=== PATIENT | female | born 1980 | race Caucasian/White ===

== ENCOUNTER 2020-01-26 00:35 | Outpatient (CLI) | payer MEDICAID, SELFPAY ==
[2020-01-26 16:46] LABS: SARS-CoV-2 RNA PCR Negative
== END 2020-01-26 00:36 | disposition home or self-care (01) ==
LOC: ANHCOVIDDT 00:35
PROVIDERS: PCP Family Medicine; Visit Provider Internal Medicine Gastroenterology
DX: Z01.818 Encounter for other preprocedural examination (principal); Z11.59 Encounter for screening for other viral diseases
CPT/HCPCS: 87635; C9803; U0003

== ENCOUNTER 2020-01-29 00:51 | Day surgery (SDC) | payer MEDICAID, SELFPAY ==
[2020-01-21 13:13] VITALS: BMI 33.6
[2020-01-29 09:08] VITALS: BMI 32.9
[2020-01-29 09:09] VITALS: BP 119/58; PULSE 78; RESP 17; TEMP 36.9; O2SAT 98
[2020-01-29] MEDS: LACTATED RINGERS 1,000 ML 150 ML IV CONT (09:19)
--- NOTE | 2020-01-29 09:54 | WPDANESEPPF ---
Anes - Initial Pre Proc Eval Procedure: Operation Date: 01/29/20 10:15 Proposed Procedures p Esophagogastroduodenoscopy - Mal Martinez MD Date/Time: 01/29/20 09:54 Surgeon: Mal Martinez MD Pre Op Diagnosis: Abdominal Pain/ Nausea Patient Data Age: 39 Gender: F Height: 5 ft 7 in Weight: 95.3 kg Last Vital Signs Temp 36.9 C 01/29/20 09:09 Pulse 78 01/29/20 09:09 Resp 17 01/29/20 09:09 BP 119/58 L 01/29/20 09:09 Pulse Ox 98 01/29/20 09:09 Allergies Allergy/AdvReac Type Severity Reaction Status Date / Time hydroxyprogesterone Allergy Severe sob, Verified 01/21/20 13:10 [From Delalutin] hives, itching quetiapine [From Seroquel] Allergy Severe Difficulty Verified 01/21/20 13:10 Swallowing, swelling, hives and itching morphine Allergy Intermediate sob, chest Verified 01/21/20 13:10 pain and hives amoxicillin [From Augmentin] Allergy Mild hives, Verified 01/21/20 13:10 itching cefuroxime Allergy Mild hives and Verified 01/21/20 13:10 itching clavulanic acid Allergy Mild hives, Verified 01/21/20 13:10 [From Augmentin] itching esomeprazole Allergy Mild hives and Verified 01/21/20 13:10 itching lansoprazole Allergy Mild hives and Verified 01/21/20 13:10 itching piperacillin Allergy Mild hives and Verified 01/21/20 13:10 itching sulfamethoxazole Allergy Mild hives and Verified 01/21/20 13:10 [From Bactrim] itching trimethoprim [From Bactrim] Allergy Mild hives and Verified 01/21/20 13:10 itching aspirin Allergy hives, Verified 01/21/20 13:10 itching and swelling Home Medications Medication Instructions Recorded Confirmed Type amitriptyline 25 mg tablet 25 mg PO DAILY #30 tablet 01/02/20 01/29/20 Rx cholestyramine-aspartame 4 gram 4 gm PO BID 01/02/20 01/29/20 History oral powder clonazepam 0.5 mg tablet 0.5 mg PO DAILY 01/02/20 01/29/20 History dicyclomine 10 mg capsule 10 mg PO TID PRN #90 cap 01/02/20 01/29/20 Rx metoprolol tartrate 25 mg tablet 25 mg PO DAILY 01/02/20 01/29/20 History nitroglycerin 0.4 mg sublingual 0.4 mg SUBLINGUAL Q5M PRN 01/02/20 01/29/20 History tablet omeprazole 40 mg capsule,delayed 40 mg PO DAILY 01/02/20 01/29/20 History release fexofenadine [Sue Allergy] 180 mg PO DAILY 01/21/20 01/29/20 History fluticasone propionate [Flonase 1 spray INTRANASAL DAILY 01/21/20 01/29/20 History Allergy Relief] acetaminophen [Tylenol] 325 mg PO ONCE PRN 01/29/20 01/29/20 History ondansetron 4 mg PO PRN PRN 01/29/20 01/29/20 History Patient hx anesthesia problems: none Family hx anesthesia problems: none [facility] Past Medical History Medical History (Updated 01/29/20 @ 09:58 by Macario Armas MD) 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 Cyclical vomiting with nausea Gastritis Irritable bowel syndrome with constipation and diarrhea Lower abdominal pain Upper abdominal pain Anes - Eval Final PreProcedure Day of Procedure 01/29/20 09:54 Patient weight: obese Heart: regular rate and rhythm Lungs: clear to auscultation Airway: Mallampati scale class II Neurological: alert and oriented Last oral intake: >/= 8 hours ASA classification: III Emergent: no Anesthetic plan: proceed Anesthesia type and monitoring: general GIVS and standard monitoring Informed Consent: The patient's anesthetic plan and its attendant risks and benefits were discussed with the patient/family/POA. Questions were solicited and answers provided to the satisfaction of the patient/family/POA.
--- NOTE | 2020-01-29 10:32 | WPDHPUPDATE1 ---
History and Physical Update Update Date/Time: 01/29/20 10:32 History and Physical has been reviewed, including an updated exam of the patient. There are NO changes in the patient's condition. Risks, benefits, and alternatives have been discussed and questions answered. Patient agrees to proceed with procedure.
[2020-01-29 10:56] VITALS: BP 107/64; PULSE 83; RESP 27; O2SAT 95
[2020-01-29 11:06] VITALS: BP 110/67; PULSE 80; RESP 15; O2SAT 95
[2020-01-29 11:16] VITALS: BP 118/76; PULSE 83; RESP 15; O2SAT 95
== END 2020-01-29 11:40 | disposition home or self-care (01) ==
PROVIDERS: PCP Family Medicine; Visit Provider Internal Medicine Gastroenterology
PROC: 0DJ08ZZ Inspection of Upper Intestinal Tract, Via Natural or Artificial Opening Endoscopic (ICD-10-PCS; CPT 43235; principal; 2020-01-29 10:15)
DX: K29.50 Unspecified chronic gastritis without bleeding (principal); K29.80 Duodenitis without bleeding; G60.0 Hereditary motor and sensory neuropathy; K58.2 Mixed irritable bowel syndrome; E66.9 Obesity, unspecified; Z68.32 Body mass index [BMI] 32.0-32.9, adult
CPT/HCPCS: 43239; 88305; J2001; J2704; J7120

== ENCOUNTER 2021-06-10 02:31 | Day surgery (SDC) | payer OTHER, SELFPAY ==
[2021-05-27 13:56] VITALS: BMI 33.3
--- NOTE | 2021-06-09 09:57 | WPDANESEPPF ---
Anes - Initial Pre Proc Eval Procedure: Operation Date: 06/10/21 08:00 Proposed Procedures p Esophagogastroduodenoscopy & Colonoscopy - Mal Martinez MD Date/Time: 06/09/21 09:57 Surgeon: Mal Martinez MD Pre Op Diagnosis: gerd, diarrhea Patient Data Age: 41 Gender: F Height: 1.7 m Weight: 96.36 kg Allergies Allergy/AdvReac Type Severity Reaction Status Date / Time hydroxyprogesterone Allergy Severe sob, Verified 06/10/21 06:53 [From Delalutin] hives, itching quetiapine [From Seroquel] Allergy Severe Difficulty Verified 06/10/21 06:53 Swallowing, swelling, hives and itching morphine Allergy Intermediate sob, chest Verified 06/10/21 06:53 pain and hives amoxicillin [From Augmentin] Allergy Mild hives, Verified 06/10/21 06:53 itching cefuroxime Allergy Mild hives and Verified 06/10/21 06:53 itching clavulanic acid Allergy Mild hives, Verified 06/10/21 06:53 [From Augmentin] itching esomeprazole Allergy Mild hives and Verified 06/10/21 06:53 itching lansoprazole Allergy Mild hives and Verified 06/10/21 06:53 itching nicotine Allergy Mild Rash Verified 06/10/21 06:53 piperacillin Allergy Mild hives and Verified 06/10/21 06:53 itching sulfamethoxazole Allergy Mild hives and Verified 06/10/21 06:53 [From Bactrim] itching trimethoprim [From Bactrim] Allergy Mild hives and Verified 06/10/21 06:53 itching aspirin Allergy hives, Verified 06/10/21 06:53 itching and swelling Home Medications Medication Instructions Recorded Confirmed Type cholestyramine-aspartame 4 gram 4 gm PO BID 01/02/20 05/27/21 History oral powder clonazepam 0.5 mg tablet 0.5 mg PO DAILY PRN 01/02/20 05/27/21 History metoprolol tartrate 25 mg tablet 25 mg PO DAILY PRN 01/02/20 05/27/21 History nitroglycerin 0.4 mg sublingual 0.4 mg SUBLINGUAL Q5M PRN 01/02/20 05/27/21 History tablet omeprazole 40 mg capsule,delayed 40 mg PO DAILY 01/02/20 05/27/21 History release fexofenadine [Sue Allergy] 180 mg PO DAILY 01/21/20 05/27/21 History fluticasone propionate [Flonase 1 spray INTRANASAL DAILY 01/21/20 05/27/21 History Allergy Relief] acetaminophen [Tylenol] 325 mg PO ONCE PRN 01/29/20 05/27/21 History ondansetron 4 mg PO PRN PRN 01/29/20 05/27/21 History dicyclomine 10 mg capsule 10 mg PO TID PRN #90 cap 02/05/20 05/27/21 Rx amitriptyline 25 mg tablet See Rx Instructions .ROUTE 09/16/20 05/27/21 Rx .COMPLEX #90 tablet famotidine 40 mg tablet 40 mg PO QHS #30 tablet 01/22/21 05/27/21 Rx Patient hx anesthesia problems: none Family hx anesthesia problems: none Results Review: All pre-operative results and documents have been reviewed as part of the pre-operative evaluation. [facility] Past Medical History Medical History (Updated 06/09/21 @ 09:58 by Ganga Potts, ) Adenomatous colon polyp Bloating Charcot Zunilda Tooth muscular atrophy Cyclical vomiting with nausea Fibroid Gastritis Hemorrhoid Irregular heart beat Irritable bowel syndrome with constipation and diarrhea Lower abdominal pain Nausea Rectal bleeding Upper abdominal pain Social History Social History (Updated 01/22/21 @ 09:02 by Tracey Broussard CMA) Smoking status: Former smoker Tobacco type: cigarettes Alcohol intake: former Substance use: never Substance use type: does not use Living arrangements: with family Spiritual care concerns: No Anes - Eval Final PreProcedure Day of Procedure 06/09/21 09:57 Patient weight: obese Heart: regular rate and rhythm Lungs: clear to auscultation and normal air movement Airway: Mallampati scale class III Neurological: alert and oriented Last oral intake: >/= 8 hours ASA classification: III Emergent: no Anesthetic plan: proceed Anesthesia type and monitoring: general GIVS and standard monitoring Results Review: All pre-operative results and documents have been
[2021-06-10 06:56] VITALS: BP 120/66; PULSE 86; RESP 18; TEMP 36.4; O2SAT 96
[2021-06-10] MEDS: LACTATED RINGERS 1,000 ML 150 ML IV CONT (07:18)
--- NOTE | 2021-06-10 08:04 | PM.HPGS ---
History of Present Illness History of Present Illness Consent: Risks, benefits, and alternatives have been discussed and questions answered. Patient agrees to proceed with procedure. Chief complaint: gerd, diarrhea Narrative: Sarah Wang is a 41 year old female with history of ibs on bentyl, gerd on omeprazole, nausea on zofran with most recent right abdominal pain. She went to another ER, she was told that had thickening right colon by CT Scan. She had colonoscopy 2018 with polyp removed. Also intermittent loose stool. Review of Systems Constitutional: Constitutional: Denies headache(s) and Denies weakness Eyes: Eyes: Denies blurry vision ENT: Reports Normal hearing present, Denies headache(s) and Denies neck pain Cardiovascular: Cardiovascular: Denies chest pain and Denies dyspnea Respiratory: Respiratory: Denies dyspnea Gastrointestinal: Gastrointestinal: Reports no additional gastrointestinal complaints Genitourinary: Genitourinary: Denies dysuria Musculoskeletal: Musculoskeletal: Denies neck pain Integumentary/Breasts: Skin/Breast: Denies dry skin Neurologic: Reports Normal hearing present, Denies headache(s) and Denies weakness Psychiatric: Psychiatric: Denies anxiety Endocrine: Endocrine: Denies change in body appearance Hematologic/Lymphatic: Hematologic/Lymphatic: Denies easy bleeding Allergic/Immunologic: Allergic/Immunologic: Denies urticaria PMFSH Past Medical History Medical History (Updated 06/09/21 @ 09:58 by Ganga Potts DO) Adenomatous colon polyp Bloating Charcot Zunilda Tooth muscular atrophy Cyclical vomiting with nausea Fibroid Gastritis Hemorrhoid Irregular heart beat Irritable bowel syndrome with constipation and diarrhea Lower abdominal pain Nausea Rectal bleeding Upper abdominal pain Social History Social History (Updated 01/22/21 @ 09:02 by Tracey Broussard CMA) Smoking status: Former smoker Tobacco type: cigarettes Alcohol intake: former Substance use: never Substance use type: does not use Living arrangements: with family Spiritual care concerns: No Meds Home Medications and Allergies Home Medications Medication Instructions Recorded Confirmed Type cholestyramine-aspartame 4 gram 4 gm PO BID 01/02/20 05/27/21 History oral powder clonazepam 0.5 mg tablet 0.5 mg PO DAILY PRN 01/02/20 05/27/21 History metoprolol tartrate 25 mg tablet 25 mg PO DAILY PRN 01/02/20 05/27/21 History nitroglycerin 0.4 mg sublingual 0.4 mg SUBLINGUAL Q5M PRN 01/02/20 05/27/21 History tablet omeprazole 40 mg capsule,delayed 40 mg PO DAILY 01/02/20 05/27/21 History release fexofenadine [Sue Allergy] 180 mg PO DAILY 01/21/20 05/27/21 History fluticasone propionate [Flonase 1 spray INTRANASAL DAILY 01/21/20 05/27/21 History Allergy Relief] acetaminophen [Tylenol] 325 mg PO ONCE PRN 01/29/20 05/27/21 History ondansetron 4 mg PO PRN PRN 01/29/20 05/27/21 History dicyclomine 10 mg capsule 10 mg PO TID PRN #90 cap 02/05/20 05/27/21 Rx amitriptyline 25 mg tablet See Rx Instructions .ROUTE 09/16/20 05/27/21 Rx .COMPLEX #90 tablet famotidine 40 mg tablet 40 mg PO QHS #30 tablet 01/22/21 05/27/21 Rx Allergies Allergy/AdvReac Type Severity Reaction Status Date / Time hydroxyprogesterone Allergy Severe sob, Verified 06/10/21 06:53 [From Delalutin] hives, itching quetiapine [From Seroquel] Allergy Severe Difficulty Verified 06/10/21 06:53 Swallowing, swelling, hives and itching morphine Allergy Intermediate sob, chest Verified 06/10/21 06:53 pain and hives amoxicillin [From Augmentin] Allergy Mild hives, Verified 06/10/21 06:53 itching cefuroxime Allergy Mild hives and Verified 06/10/21 06:53 itching clavulanic acid Allergy Mild hives, Verified 06/10/21 06:53 [From Augmentin] itching esomeprazole Allergy Mild hives and Verified 06/10/21 06:53 itching lansoprazole Allergy Mild hive
[2021-06-10 08:38] VITALS: BP 89/47; PULSE 76; RESP 17; O2SAT 100
[2021-06-10 08:48] VITALS: BP 109/82; PULSE 74; RESP 14; O2SAT 98
[2021-06-10 08:58] VITALS: BP 114/86; PULSE 73; RESP 20; O2SAT 98
== END 2021-06-10 09:12 | disposition home or self-care (01) ==
PROVIDERS: Visit Provider Internal Medicine Gastroenterology
PROC: 0DJ08ZZ Inspection of Upper Intestinal Tract, Via Natural or Artificial Opening Endoscopic (ICD-10-PCS; CPT 43235; principal; 2021-06-10 08:00)
DX: R10.30 Lower abdominal pain, unspecified (principal); K64.8 Other hemorrhoids; K58.2 Mixed irritable bowel syndrome; K29.70 Gastritis, unspecified, without bleeding; K21.9 Gastro-esophageal reflux disease without esophagitis; R11.0 Nausea; R11.15 Cyclical vomiting syndrome unrelated to migraine; G60.0 Hereditary motor and sensory neuropathy; Z87.891 Personal history of nicotine dependence; E66.9 Obesity, unspecified; Z68.33 Body mass index [BMI] 33.0-33.9, adult
CPT/HCPCS: 45380; 43239; 88305; 88307; J2001; J2370; J2704; J7120

== ENCOUNTER 2023-10-07 00:39 | Day surgery (SDC) | payer BC, MEDICAID, SELFPAY ==
[2023-06-07 15:52] VITALS: BMI 36.1
[2023-08-16 11:03] VITALS: BMI 36.1
--- NOTE | 2023-08-16 11:20 | PC.NURSE ---
Pt. called regarding proc., instructions reviewed, pt states Dr. Farias does not have her do the magnesium citrate at 2300 due to her GI issues. instructed to follow whatever instructions he has her to complete is fine.
--- NOTE | 2023-08-19 10:31 | SUR.PREOP ---
Patient called regarding upcoming procedure. Reviewed preop instructions, appointment times, and procedure prep.
[2023-09-16 09:33] VITALS: BMI 36.1
--- NOTE | 2023-10-05 10:06 | SUR.PREOP ---
Patient called regarding upcoming procedure. Message left on pt's voicemail regarding appointment times.
[2023-10-07 07:09] VITALS: BP 144/76; PULSE 87; RESP 20; TEMP 36.8; O2SAT 100
[2023-10-07] MEDS: LACTATED RINGERS 1,000 ML 150 ML IV CONT (07:41)
--- NOTE | 2023-10-07 07:47 | WPDANESEPPF ---
Anes - Initial Pre Proc Eval Procedure: Operation Date: 10/07/23 08:00 Proposed Procedures p Esophagogastroduodenoscopy & Colonoscopy - Mal Martinez MD Date/Time: 10/07/23 07:47 Surgeon: Mal Martinez MD Pre Op Diagnosis: lower abdominal pain,nausea Patient Data Age: 43 Gender: F Height: 1.7 m Weight: 101.5 kg Last Vital Signs Temp 98.2 F 10/07/23 07:09 Pulse 87 10/07/23 07:09 Resp 20 10/07/23 07:09 BP 144/76 H 10/07/23 07:09 Pulse Ox 100 10/07/23 07:09 O2 Del Method Room Air 10/07/23 07:09 Allergies Allergy/AdvReac Type Severity Reaction Status Date / Time aspirin Allergy Severe hives, Verified 10/07/23 07:05 itching and swelling quetiapine [From Seroquel] Allergy Severe Difficulty Verified 10/07/23 07:05 Swallowing, swelling, hives and itching cefuroxime Allergy Intermediate hives and Verified 10/07/23 07:05 itching clavulanic acid Allergy Intermediate hives, Verified 10/07/23 07:05 [From Augmentin] itching esomeprazole Allergy Intermediate hives and Verified 10/07/23 07:05 itching hydromorphone [From Dilaudid] Allergy Intermediate Hives Verified 10/07/23 07:05 lansoprazole Allergy Intermediate hives and Verified 10/07/23 07:05 itching morphine Allergy Intermediate Hives Verified 10/07/23 07:05 nicotine [From Nicoderm CQ] Allergy Intermediate Rash Verified 10/07/23 07:05 piperacillin Allergy Intermediate hives and Verified 10/07/23 07:05 itching sulfamethoxazole Allergy Intermediate hives and Verified 10/07/23 07:05 [From Bactrim] itching trimethoprim [From Bactrim] Allergy Intermediate hives and Verified 10/07/23 07:05 itching Home Medications Medication Instructions Recorded Confirmed Type clonazepam 0.5 mg tablet 0.5 mg PO DAILY PRN Anxiety 01/02/20 09/16/23 History metoprolol tartrate 25 mg tablet 25 mg PO DAILY PRN Tachycardia 01/02/20 09/16/23 History nitroglycerin 0.4 mg sublingual 0.4 mg sublingual Q5M PRN CHEST 01/02/20 09/16/23 History tablet PAIN omeprazole 40 mg capsule,delayed 40 mg PO DAILY 01/02/20 09/16/23 History release acetaminophen 325 mg capsule 325 mg PO ONCE PRN Headache 01/29/20 09/16/23 History (Tylenol) ondansetron 4 mg disintegrating 4 mg PO PRN PRN Nausea 01/29/20 09/16/23 History tablet dicyclomine 10 mg capsule 10 mg PO TID PRN cramping #90 caps 08/25/21 09/16/23 Rx amitriptyline 50 mg tablet 50 mg PO QHS #90 tabs 03/31/23 09/16/23 Rx meloxicam 15 mg tablet 15 mg PO DAILY PRN Pain 03/31/23 09/16/23 History sucralfate 1 gram tablet (Carafate) 1 g PO TID 03/31/23 09/16/23 History topiramate 25 mg tablet (Topamax) 25 mg PO DAILY 03/31/23 09/16/23 History albuterol sulfate 90 mcg/actuation 2 puff inhalation Q4H PRN 06/07/23 09/16/23 History aerosol inhaler Shortness Of Breath Patient hx anesthesia problems: none Family hx anesthesia problems: none Results Review: All pre-operative results and documents have been reviewed as part of the pre-operative evaluation. [facility], [facility] Past Medical History Medical History (Updated 03/31/23 @ 11:17 by Asha Morse APRN) Adenomatous colon polyp Bloating Charcot Zunilda Tooth muscular atrophy Cyclical vomiting with nausea Diverticulosis Fibroid Gastritis Hemorrhoid Hx of Clostridium difficile infection Irregular heart beat Irritable bowel syndrome with constipation and diarrhea Irritable bowel syndrome with diarrhea Lower abdominal pain Nausea Obesity Rectal bleeding Upper abdominal pain Social History Social History Smoking packs per day: 1.5 Smoking cigarettes per day: 30.0 Years smoked: 17 Smoking pack-years: 25.50 Smoking status: Former smoker Tobacco type: cigarettes Alcohol intake: never Substance use: never Substance use type: does not use Living arrangements: with family Spiritual care concerns: No
--- NOTE | 2023-10-07 07:54 | PM.HPGS ---
History of Present Illness History of Present Illness Consent: Risks, benefits, and alternatives have been discussed and questions answered. Patient agrees to proceed with procedure. Chief complaint: lower abdominal pain,nausea Narrative: Sarah Wang is a 43 year old female with longstanding GI symptoms including ibs, nausea and gerd on omeprazole, carafate, zofran (elavil did not help), last egd and colonoscopy 2020 no major findings (no celiac, no microscopic colitis) Review of Systems Constitutional: Constitutional: Denies headache(s) and Denies weakness Eyes: Eyes: Denies blurry vision ENT: Reports Normal hearing present, Denies headache(s) and Denies neck pain Cardiovascular: Cardiovascular: Denies chest pain and Denies dyspnea Respiratory: Respiratory: Denies dyspnea Gastrointestinal: Gastrointestinal: Reports no additional gastrointestinal complaints Genitourinary: Genitourinary: Denies dysuria Musculoskeletal: Musculoskeletal: Denies neck pain Integumentary/Breasts: Skin/Breast: Denies dry skin Neurologic: Reports Normal hearing present, Denies headache(s) and Denies weakness Psychiatric: Psychiatric: Denies anxiety Endocrine: Endocrine: Denies change in body appearance Hematologic/Lymphatic: Hematologic/Lymphatic: Denies easy bleeding Allergic/Immunologic: Allergic/Immunologic: Denies urticaria PMFSH Past Medical History Medical History (Updated 03/31/23 @ 11:17 by Asha Morse APRN) Adenomatous colon polyp Bloating Charcot Zunilda Tooth muscular atrophy Cyclical vomiting with nausea Diverticulosis Fibroid Gastritis Hemorrhoid Hx of Clostridium difficile infection Irregular heart beat Irritable bowel syndrome with constipation and diarrhea Irritable bowel syndrome with diarrhea Lower abdominal pain Nausea Obesity Rectal bleeding Upper abdominal pain Social History Social History Smoking packs per day: 1.5 Smoking cigarettes per day: 30.0 Years smoked: 17 Smoking pack-years: 25.50 Smoking status: Former smoker Tobacco type: cigarettes Alcohol intake: never Substance use: never Substance use type: does not use Living arrangements: with family Spiritual care concerns: No Meds Home Medications and Allergies Home Medications Medication Instructions Recorded Confirmed Type clonazepam 0.5 mg tablet 0.5 mg PO DAILY PRN Anxiety 01/02/20 09/16/23 History metoprolol tartrate 25 mg tablet 25 mg PO DAILY PRN Tachycardia 01/02/20 09/16/23 History nitroglycerin 0.4 mg sublingual 0.4 mg sublingual Q5M PRN CHEST 01/02/20 09/16/23 History tablet PAIN omeprazole 40 mg capsule,delayed 40 mg PO DAILY 01/02/20 09/16/23 History release acetaminophen 325 mg capsule 325 mg PO ONCE PRN Headache 01/29/20 09/16/23 History (Tylenol) ondansetron 4 mg disintegrating 4 mg PO PRN PRN Nausea 01/29/20 09/16/23 History tablet dicyclomine 10 mg capsule 10 mg PO TID PRN cramping #90 caps 08/25/21 09/16/23 Rx amitriptyline 50 mg tablet 50 mg PO QHS #90 tabs 03/31/23 09/16/23 Rx meloxicam 15 mg tablet 15 mg PO DAILY PRN Pain 03/31/23 09/16/23 History sucralfate 1 gram tablet (Carafate) 1 g PO TID 03/31/23 09/16/23 History topiramate 25 mg tablet (Topamax) 25 mg PO DAILY 03/31/23 09/16/23 History albuterol sulfate 90 mcg/actuation 2 puff inhalation Q4H PRN 06/07/23 09/16/23 History aerosol inhaler Shortness Of Breath Allergies Allergy/AdvReac Type Severity Reaction Status Date / Time aspirin Allergy Severe hives, Verified 10/07/23 07:05 itching and swelling quetiapine [From Seroquel] Allergy Severe Difficulty Verified 10/07/23 07:05 Swallowing, swelling, hives and itching cefuroxime Allergy Intermediate hives and Verified 10/07/23 07:05 itching clavulanic acid Allergy Intermediate hives, Verified 10/07/23 07:05 [From Augmentin] itching esomeprazole Allergy Interme
--- NOTE | 2023-10-07 08:14 | SUR.OPER ---
EGD: [id number] COLON: Start 08
[2023-10-07 08:22] VITALS: BP 111/85; PULSE 74; RESP 20; O2SAT 96
[2023-10-07 08:32] VITALS: BP 108/56; PULSE 73; RESP 18; O2SAT 96
[2023-10-07 08:42] VITALS: BP 109/61; PULSE 70; RESP 18; O2SAT 97
== END 2023-10-07 08:50 | disposition home or self-care (01) ==
PROVIDERS: Visit Provider Internal Medicine Gastroenterology
PROC: 0DJ08ZZ Inspection of Upper Intestinal Tract, Via Natural or Artificial Opening Endoscopic (ICD-10-PCS; CPT 43235; principal; 2023-10-07 08:00)
DX: K58.0 Irritable bowel syndrome with diarrhea (principal); D12.2 Benign neoplasm of ascending colon; K64.8 Other hemorrhoids; Z87.891 Personal history of nicotine dependence; E66.9 Obesity, unspecified; Z68.35 Body mass index [BMI] 35.0-35.9, adult
CPT/HCPCS: 45385; 43239; 88305; J2704; J7120